=== PATIENT | female | born 1955 | race Hispanic/Latino ===

== ENCOUNTER 2017-03-13 12:28 | Inpatient (IN) | payer OTHER, MEDICAID ==
[~2017-03-13] VITALS: Ht 124.5 cm; Wt 65.9 kg
[2017-03-13] MEDS ORDERED: IPRATROPIUM/ALBUTEROL SULFATE 3 ML SOLUTION IH ONE (13:38)
[2017-03-13 13:39] LABS: BASOPHILS % (AUTO) 0.7 % (0.0-5.0); EOSINOPHILS % (AUTO) 5.4 % (0.0-8.0); LYMPHOCYTES % (AUTO) 13.1 % (21.0-51.0); MEAN CORPUSCULAR HEMOGLOBIN 36.7 pg (27.0-33.0); MEAN CORPUSCULAR HGB CONC 33.8 g/dL (32.0-36.0); MEAN CORPUSCULAR VOLUME 108.7 fL (79-99); MONOCYTES % (AUTO) 8.9 % (3.0-13.0); NEUTROPHILS % (AUTO) 71.9 % (40.0-77.0); NUCLEATED RED BLOOD CELLS 0.3 % (0.0-0.19); PLATELET COUNT (AUTO) 196 K/uL (130-400); RED BLOOD CELL COUNT(AUTO) 1.82 MIL/uL (4.00-5.50); RED CELL DISTRIBUTION WIDTH 16.7 % (11.0-15.5); WHITE BLOOD COUNT (AUTO) 7.2 K/uL (4.8-10.8)
[2017-03-13 13:45] LABS: HEMATOCRIT 19.7 % (36-48)
[2017-03-13 13:47] LABS: CREATININE 7.6 mg/dL (0.5-1.5); POTASSIUM 5.3 mmol/L (3.5-5.1)
[2017-03-13 13:52] LABS: ALBUMIN 2.4 g/dL (3.5-5.0); BILIRUBIN,TOTAL 0.4 mg/dL (0.2-1.0); TOTAL PROTEIN, SERUM 6.8 g/dL (6.0-8.3)
[2017-03-13 13:57] LABS: RAPID GROUP A STREP NEGATIVE (NEGATIVE)
[2017-03-13 14:23] VITALS: BP 52/34
[2017-03-13] MEDS ORDERED: TRAMADOL HCL 50 MG TABLET ONE (16:29)
[2017-03-13] MEDS ORDERED: CALCIUM GLUCONATE 1 GM/10 ML VIAL IV ONE (17:12)
[2017-03-13] MEDS ORDERED: SODIUM POLYSTYRENE SULFONATE 15 GM/60 ML ML ONE (17:12)
[2017-03-13] MEDS ORDERED: INSULIN HUMULIN R 100 UNIT/ML 3ML ONE (17:13)
[2017-03-13] MEDS ORDERED: DEXTROSE 50%-WATER 50 ML DISP.SYRIN IV ONE (18:28)
[2017-03-13] MEDS ORDERED: HYDRALAZINE HCL 20 MG/ML VIAL IV PRN (22:00)
[2017-03-13] MEDS ORDERED: SODIUM CHLORIDE 0.9% 10 ML VIAL IVP PRN (22:15)
[2017-03-13] MEDS ORDERED: FURO20TA6 PO (22:53)
[2017-03-13] MEDS ORDERED: METO-391 PO (22:53)
[2017-03-13] MEDS ORDERED: AMLO10TA2 PO (22:53)
[2017-03-13] MEDS ORDERED: CLOP75TA14 PO (22:53)
[2017-03-13] MEDS ORDERED: ASPI-555 PO (22:53)
[2017-03-13] MEDS ORDERED: SPIR50TA3 PO (22:53)
[2017-03-13] MEDS ORDERED: ISOS20TA7 PO (22:53)
[2017-03-13] MEDS ORDERED: VITA1CAP85 PO (22:56)
[2017-03-13] MEDS ORDERED: GABA-531 PO (22:56)
[2017-03-13] MEDS: ZOSYN 3.375GM+NS 50ML 50 ML IV SCH (23:03)
[2017-03-13] MEDS: FUROSEMIDE 10 MG/ML 4ML VIAL IVP SCH (23:03)
[2017-03-13 23:05] VITALS: BP 104/51
[2017-03-14] VITALS (20 sets, daily range): BP systolic 52–147; BP diastolic 34–81
[2017-03-14] MEDS ORDERED: ACETAMINOPHEN 325 MG TAB PO PRN (01:30)
[2017-03-14] MEDS ORDERED: HYDRALAZINE HCL 20 MG/ML VIAL IV PRN (01:30)
[2017-03-14] MEDS ORDERED: ACETAMINOPHEN-CODEINE 300/30MG TAB PO PRN (01:30)
[2017-03-14] MEDS: IPRATROPIUM/ALBUTEROL SULFATE 3 ML SOLUTION IH SCH ×5 (05:13→22:54)
[2017-03-14] MEDS ORDERED: FUROSEMIDE 20 MG TABLET PO SCH (06:00)
[2017-03-14] MEDS: INSULIN R PO SS1 SQ SCH ×4 (07:12→21:00)
[2017-03-14] MEDS: EPOETIN ALFA 3,000 UNIT/ML ML SQ SCH (08:12)
[2017-03-14] MEDS ORDERED: SPIRONOLACTONE 25 MG TAB PO SCH (09:00)
[2017-03-14] MEDS: ZOSYN 3.375GM+NS 50ML 50 ML IV SCH ×2 (10:38→22:18)
[2017-03-14] MEDS: CLOPIDOGREL BISULFATE 75 MG TAB PO SCH (10:39)
[2017-03-14] MEDS: FUROSEMIDE 10 MG/ML 4ML VIAL IVP SCH ×2 (10:39→22:18)
[2017-03-14] MEDS: AMLODIPINE BESYLATE 5 MG TAB PO SCH (10:39)
[2017-03-14] MEDS: PANTOPRAZOLE SODIUM 40 MG TABLET.DR PO SCH (10:40)
[2017-03-14] MEDS: ISOSORBIDE MONO 30MG TAB SR PO SCH (10:40)
[2017-03-14] MEDS: METOPROLOL TARTRATE 50 MG TAB PO SCH ×2 (10:40→21:00)
[2017-03-14] MEDS: BENZONATATE 100 MG CAPSULE PO SCH ×3 (10:40→21:00)
[2017-03-14] MEDS: METHYLPREDNISOLONE SOD SUCC 40MG/ML 1ML IVP SCH ×2 (12:00→22:17)
[2017-03-14] MEDS: AZITHROMYCIN 500MG+NS 250ML 250 ML IV SCH (14:00)
[2017-03-14] MEDS ORDERED: SODIUM CHLORIDE 0.9% 1000ML 1,000 ML IV ONE (14:34)
[2017-03-14] MEDS ORDERED: PROPOFOL 1000 MG/100 ML 100 ML IV ONE (14:50)
[2017-03-14 14:52] LABS: HEMATOCRIT 21.4 % (36-48); MEAN CORPUSCULAR HGB CONC 32.1 g/dL (32.0-36.0); MEAN CORPUSCULAR VOLUME 112.3 fL (79-99); NUCLEATED RED BLOOD CELLS 0.4 % (0.0-0.19); PLATELET COUNT (AUTO) 210 K/uL (130-400); RED BLOOD CELL COUNT(AUTO) 1.91 MIL/uL (4.00-5.50); RED CELL DISTRIBUTION WIDTH 16.9 % (11.0-15.5); WHITE BLOOD COUNT (AUTO) 12.4 K/uL (4.8-10.8)
[2017-03-14 15:11] LABS: MAGNESIUM 2.3 mg/dL (1.80-2.40); PHOSPHORUS 10.8 mg/dL (2.5-4.9)
[2017-03-14 15:13] LABS: ALBUMIN 2.1 g/dL (3.5-5.0); BILIRUBIN,DIRECT 0.1 mg/dL (0.0-0.3); BILIRUBIN,TOTAL 0.4 mg/dL (0.2-1.0); CREATINE KINASE MB 2.3 ng/mL (0.5-3.6); TOTAL PROTEIN, SERUM 6.2 g/dL (6.0-8.3); TROPONIN I 0.08 ng/mL (0.00-0.06)
[2017-03-14 15:14] LABS: B-TYPE NATRIURETIC PEPTIDE 2660 pg/mL (0-100)
[2017-03-14 15:15] LABS: CREATININE 8.6 mg/dL (0.5-1.5)
[2017-03-14] MEDS ORDERED: CALCIUM GLUCONATE 1 GM in SODIUM CHLORIDE 0.9% 50 ML IV STA (15:24)
[2017-03-14] MEDS ORDERED: SODIUM BICARB 8.4% 50ML SYRINGE IVP STA (15:24)
[2017-03-14] MEDS ORDERED: SODIUM POLYSTYRENE SULFONATE 15 GM/60 ML ML PO STA (15:24)
[2017-03-14] MEDS ORDERED: DEXTROSE 50%-WATER 25 GM/50 ML VIAL IV STA (15:24)
[2017-03-14] MEDS ORDERED: INSULIN HUMULIN R 100 UNIT/ML 3ML IV STA (15:24)
[2017-03-14] MEDS ORDERED: PROPOFOL 1000 MG/100 ML IV PRN (15:30)
[2017-03-14 15:44] LABS: ABG BASE EXCESS -6.9 mmol/L (-2.0-3.0); ABG HCO3 17.8 mmol/L (21.0-28.0); ABG OXYGEN SATURATION 98.1 % (95.0-99.0); ABG PCO2 32 mmHg (32-45)
[2017-03-14] MEDS ORDERED: CALCIUM GLUCONATE 1 GM in DEXTROSE 5%-WATER 50 ML IV STA (15:45)
[2017-03-14] MEDS ORDERED: SODIUM BICARB 50MEQ 50ML VIAL ONE (16:23)
[2017-03-14] MEDS ORDERED: DEXTROSE 50%-WATER 50 ML DISP.SYRIN IV ONE (16:24)
[2017-03-14] MEDS ORDERED: DOPAMINE 800MG/D5 250ML 250 ML IV PRN (17:30)
[2017-03-14] MEDS: GABAPENTIN 300 MG CAPSULE PO SCH (22:17)
[2017-03-15] VITALS (24 sets, daily range): BP systolic 94–157; BP diastolic 44–87
[2017-03-15] MEDS: IPRATROPIUM/ALBUTEROL SULFATE 3 ML SOLUTION IH SCH ×6 (03:13→21:32)
[2017-03-15 03:47] LABS: MEAN CORPUSCULAR HEMOGLOBIN 36.3 pg (27.0-33.0); MEAN CORPUSCULAR HGB CONC 33.2 g/dL (32.0-36.0); MEAN CORPUSCULAR VOLUME 109.4 fL (79-99); NUCLEATED RED BLOOD CELLS 0.2 % (0.0-0.19); PLATELET COUNT (AUTO) 151 K/uL (130-400); RED BLOOD CELL COUNT(AUTO) 1.63 MIL/uL (4.00-5.50); WHITE BLOOD COUNT (AUTO) 6.1 K/uL (4.8-10.8)
[2017-03-15 03:55] LABS: HEMATOCRIT 17.9 % (36-48)
[2017-03-15 04:08] LABS: MAGNESIUM 2.3 mg/dL (1.80-2.40); PHOSPHORUS 9.2 mg/dL (2.5-4.9)
[2017-03-15 04:13] LABS: CREATININE 8.1 mg/dL (0.5-1.5)
[2017-03-15 04:22] LABS: BASOPHILS % (MANUAL) 1 % (0-2); EOSINOPHILS % (MANUAL) 1 % (1-6); LYMPHOCYTES % (MANUAL) 7 % (22-44); MAN.DIFF COMMENT-IMPRESSION MANUAL DIFFERENTIAL; METAMYELOCYTES % 2 % (0-0); MONOCYTES % (MANUAL) 2 % (2-9); PLATELET MORPHOLOGY COMMENT ADEQUATE; SEGMENTED NEUTROPHILS % 87 % (40-70)
[2017-03-15] MEDS: METHYLPREDNISOLONE SOD SUCC 40MG/ML 1ML IVP SCH ×3 (04:46→20:40)
[2017-03-15] MEDS: INSULIN R PO SS1 SQ SCH ×4 (06:58→21:00)
[2017-03-15] MEDS: EPOETIN ALFA 3,000 UNIT/ML ML SQ SCH (07:07)
[2017-03-15] MEDS: BENZONATATE 100 MG CAPSULE PO SCH ×3 (08:04→20:40)
[2017-03-15] MEDS: ISOSORBIDE MONO 30MG TAB SR PO SCH (08:12)
[2017-03-15] MEDS: ZOSYN 3.375GM+NS 50ML 50 ML IV SCH ×2 (08:12→20:40)
[2017-03-15] MEDS: METOPROLOL TARTRATE 50 MG TAB PO SCH ×2 (08:13→20:40)
[2017-03-15] MEDS: AMLODIPINE BESYLATE 5 MG TAB PO SCH (08:13)
[2017-03-15] MEDS: PANTOPRAZOLE SODIUM 40 MG TABLET.DR PO SCH (08:13)
[2017-03-15] MEDS: CLOPIDOGREL BISULFATE 75 MG TAB PO SCH (09:00)
[2017-03-15] MEDS: AZITHROMYCIN 500MG+NS 250ML 250 ML IV SCH (12:23)
[2017-03-15] MEDS: FUROSEMIDE 10 MG/ML 4ML VIAL IVP SCH (12:23)
[2017-03-15 14:44] LABS: ABG BASE EXCESS -2.5 mmol/L (-2.0-3.0); ABG HCO3 19.6 mmol/L (21.0-28.0); ABG OXYGEN SATURATION 99.5 % (95.0-99.0); ABG PCO2 28 mmHg (32-45)
[2017-03-15] MEDS: GABAPENTIN 300 MG CAPSULE PO SCH (20:40)
[2017-03-16] VITALS (15 sets, daily range): BP systolic 106–162; BP diastolic 45–85
[2017-03-16] MEDS: FUROSEMIDE 10 MG/ML 4ML VIAL IVP SCH ×3 (00:41→21:31)
[2017-03-16] MEDS: IPRATROPIUM/ALBUTEROL SULFATE 3 ML SOLUTION IH SCH ×6 (02:32→21:50)
[2017-03-16] MEDS: METHYLPREDNISOLONE SOD SUCC 40MG/ML 1ML IVP SCH ×3 (03:31→21:28)
[2017-03-16 04:19] LABS: CREATININE 7.7 mg/dL (0.5-1.5); MEAN CORPUSCULAR HEMOGLOBIN 34.7 pg (27.0-33.0); MEAN CORPUSCULAR HGB CONC 32.3 g/dL (32.0-36.0); MEAN CORPUSCULAR VOLUME 107.6 fL (79-99); NUCLEATED RED BLOOD CELLS 0.3 % (0.0-0.19); PLATELET COUNT (AUTO) 173 K/uL (130-400); POTASSIUM 3.4 mmol/L (3.5-5.1); RED BLOOD CELL COUNT(AUTO) 1.78 MIL/uL (4.00-5.50); RED CELL DISTRIBUTION WIDTH 16.3 % (11.0-15.5); WHITE BLOOD COUNT (AUTO) 10.8 K/uL (4.8-10.8)
[2017-03-16 04:26] LABS: HEMATOCRIT 19.2 % (36-48)
[2017-03-16] MEDS: INSULIN R PO SS1 SQ SCH ×4 (06:28→21:35)
[2017-03-16] MEDS: AMLODIPINE BESYLATE 5 MG TAB PO SCH (08:22)
[2017-03-16] MEDS: ZOSYN 3.375GM+NS 50ML 50 ML IV SCH ×2 (08:22→21:28)
[2017-03-16] MEDS: BENZONATATE 100 MG CAPSULE PO SCH ×3 (08:22→21:28)
[2017-03-16] MEDS: METOPROLOL TARTRATE 50 MG TAB PO SCH ×2 (08:23→23:41)
[2017-03-16] MEDS: ISOSORBIDE MONO 30MG TAB SR PO SCH (08:23)
[2017-03-16] MEDS: PANTOPRAZOLE SODIUM 40 MG TABLET.DR PO SCH (08:23)
[2017-03-16] MEDS: CLOPIDOGREL BISULFATE 75 MG TAB PO SCH (08:23)
[2017-03-16] MEDS: AZITHROMYCIN 500MG+NS 250ML 250 ML IV SCH (11:47)
[2017-03-16] MEDS: AZITHROMYCIN 250 MG TABLET PO SCH (14:23)
[2017-03-16] MEDS: GABAPENTIN 300 MG CAPSULE PO SCH (21:29)
[2017-03-17] MEDS: IPRATROPIUM/ALBUTEROL SULFATE 3 ML SOLUTION IH SCH ×6 (01:31→22:54)
[2017-03-17 03:03] VITALS: BP 120/50
[2017-03-17] MEDS: METHYLPREDNISOLONE SOD SUCC 40MG/ML 1ML IVP SCH ×3 (04:38→20:34)
[2017-03-17] MEDS: INSULIN R PO SS1 SQ SCH ×4 (06:06→21:00)
[2017-03-17 07:23] VITALS: BP 117/54
[2017-03-17] MEDS: PANTOPRAZOLE SODIUM 40 MG TABLET.DR PO SCH (08:23)
[2017-03-17] MEDS: BENZONATATE 100 MG CAPSULE PO SCH ×3 (08:23→21:33)
[2017-03-17] MEDS: ZOSYN 3.375GM+NS 50ML 50 ML IV SCH ×2 (08:23→21:33)
[2017-03-17] MEDS: CLOPIDOGREL BISULFATE 75 MG TAB PO SCH (08:23)
[2017-03-17] MEDS: METOPROLOL TARTRATE 50 MG TAB PO SCH ×2 (08:23→21:33)
[2017-03-17] MEDS: AMLODIPINE BESYLATE 5 MG TAB PO SCH (09:00)
[2017-03-17] MEDS: ISOSORBIDE MONO 30MG TAB SR PO SCH (09:00)
[2017-03-17 09:40] LABS: MEAN CORPUSCULAR HEMOGLOBIN 35.3 pg (27.0-33.0); MEAN CORPUSCULAR HGB CONC 32.5 g/dL (32.0-36.0); MEAN CORPUSCULAR VOLUME 108.6 fL (79-99); NUCLEATED RED BLOOD CELLS 1.6 % (0.0-0.19); PLATELET COUNT (AUTO) 178 K/uL (130-400); RED BLOOD CELL COUNT(AUTO) 1.77 MIL/uL (4.00-5.50); RED CELL DISTRIBUTION WIDTH 16.2 % (11.0-15.5); WHITE BLOOD COUNT (AUTO) 7.6 K/uL (4.8-10.8)
[2017-03-17 09:47] LABS: CREATININE 7.7 mg/dL (0.5-1.5); HEMATOCRIT 19.2 % (36-48); POTASSIUM 3.5 mmol/L (3.5-5.1)
[2017-03-17] MEDS: FUROSEMIDE 10 MG/ML 4ML VIAL IVP SCH ×2 (10:25→22:56)
[2017-03-17 11:11] VITALS: BP 140/65
[2017-03-17 11:11] LABS: LYMPHOCYTES % (MANUAL) 8 % (22-44); MAN.DIFF COMMENT-IMPRESSION MANUAL DIFFERENTIAL; MONOCYTES % (MANUAL) 3 % (2-9); SEGMENTED NEUTROPHILS % 89 % (40-70)
[2017-03-17 11:12] LABS: PLATELET MORPHOLOGY COMMENT ADEQUATE
[2017-03-17] MEDS: AZITHROMYCIN 250 MG TABLET PO SCH (13:34)
[2017-03-17 16:22] VITALS: BP 141/59
[2017-03-17 19:01] VITALS: BP 139/63
[2017-03-17] MEDS: GABAPENTIN 300 MG CAPSULE PO SCH (21:33)
[2017-03-17 23:04] VITALS: BP 156/83
[2017-03-18] MEDS: IPRATROPIUM/ALBUTEROL SULFATE 3 ML SOLUTION IH SCH ×4 (02:02→14:03)
[2017-03-18 03:25] VITALS: BP 128/57
[2017-03-18] MEDS: METHYLPREDNISOLONE SOD SUCC 40MG/ML 1ML IVP SCH (03:49)
[2017-03-18] MEDS: INSULIN R PO SS1 SQ SCH ×2 (06:20→11:59)
[2017-03-18 07:00] VITALS: BP 146/61
[2017-03-18 11:00] VITALS: BP 140/63
[2017-03-18] MEDS: FUROSEMIDE 10 MG/ML 4ML VIAL IVP SCH (11:54)
[2017-03-18] MEDS: BENZONATATE 100 MG CAPSULE PO SCH (11:54)
[2017-03-18] MEDS: ISOSORBIDE MONO 30MG TAB SR PO SCH (11:55)
[2017-03-18] MEDS: CLOPIDOGREL BISULFATE 75 MG TAB PO SCH (11:55)
[2017-03-18] MEDS: AMLODIPINE BESYLATE 5 MG TAB PO SCH (11:55)
[2017-03-18] MEDS: PANTOPRAZOLE SODIUM 40 MG TABLET.DR PO SCH (11:55)
[2017-03-18] MEDS: AZITHROMYCIN 250 MG TABLET PO SCH (11:55)
[2017-03-18] MEDS: METOPROLOL TARTRATE 50 MG TAB PO SCH (11:55)
[2017-07-18] MEDS ORDERED: HYDR-3422 PO (09:27)
== END 2017-03-18 14:25 | disposition home or self-care (01) | DRG 208 ==
LOC: EDH 12:28 → EDHIP 18:00 → 4CH 21:04 → 2BH 03-14 14:46 → 2AH 03-16 16:47
PROVIDERS: ADMIT Family Medicine; ATTEND Family Medicine
PROC: 0BH17EZ Insertion of Endotracheal Airway into Trachea, Via Natural or Artificial Opening (ICD-10-PCS; principal; 2017-03-14)
PROC: 5A1935Z Respiratory Ventilation, Less than 24 Consecutive Hours (ICD-10-PCS; 2017-03-14)
PROC: 3E1M39Z Irrigation of Peritoneal Cavity using Dialysate, Percutaneous Approach (ICD-10-PCS; 2017-03-14)
PROC: 5A12012 Performance of Cardiac Output, Single, Manual (ICD-10-PCS; 2017-03-15)
PROC: 3E1M39Z Irrigation of Peritoneal Cavity using Dialysate, Percutaneous Approach (ICD-10-PCS; 2017-03-15)
PROC: 3E1M39Z Irrigation of Peritoneal Cavity using Dialysate, Percutaneous Approach (ICD-10-PCS; 2017-03-16)
PROC: 3E1M39Z Irrigation of Peritoneal Cavity using Dialysate, Percutaneous Approach (ICD-10-PCS; 2017-03-17)
DX: J96.00 Acute respiratory failure, unspecified whether with hypoxia or hypercapnia (principal); E11.22 Type 2 diabetes mellitus with diabetic chronic kidney disease; E11.51 Type 2 diabetes mellitus with diabetic peripheral angiopathy without gangrene; J90 Pleural effusion, not elsewhere classified; I46.8 Cardiac arrest due to other underlying condition; N18.6 End stage renal disease; I12.0 Hypertensive chronic kidney disease with stage 5 chronic kidney disease or end stage renal disease; E87.5 Hyperkalemia; J20.9 Acute bronchitis, unspecified; D63.1 Anemia in chronic kidney disease; I25.10 Atherosclerotic heart disease of native coronary artery without angina pectoris; E78.5 Hyperlipidemia, unspecified; S81.802A Unspecified open wound, left lower leg, initial encounter; S81.801A Unspecified open wound, right lower leg, initial encounter; X58.XXXA Exposure to other specified factors, initial encounter; Y93.89 Activity, other specified; Z99.2 Dependence on renal dialysis; Y92.89 Other specified places as the place of occurrence of the external cause; Y99.8 Other external cause status; Z82.49 Family history of ischemic heart disease and other diseases of the circulatory system; Z90.49 Acquired absence of other specified parts of digestive tract; Z98.891 History of uterine scar from previous surgery; Z89.432 Acquired absence of left foot; Z89.431 Acquired absence of right foot; Z95.5 Presence of coronary angioplasty implant and graft; Z79.899 Other long term (current) drug therapy
CPT/HCPCS: 31500; 36415; 36600; 71010; 71020; 71045; 80048; 80053; 80076; 82330; 82435; 82550; 82553; 82803; 82947; 82948; 83605; 83735; 83874; 83880; 84100; 84132; 84295; 84484; 85018; 85025; 85027; 87633; 87804; 87880; 92950; 93005; 94002; 94003; 94640; 94664; J0456; J0610; J1815; J1940; J2543; J2704; J2920; J3490; J7030; J7060; J7070

== ENCOUNTER 2017-04-03 12:11 | Inpatient (IN) | payer MEDICAID, OTHER ==
[~2017-04-03] VITALS: Ht 157.5 cm; Wt 66.8 kg
[~2017-04-03 12:11] MED LIST: AMLO10TA2 PO; ASPI-555 PO; CLOP75TA14 PO; FURO20TA6 PO; GABA-531 PO; ISOS20TA7 PO; METO-391 PO; SPIR50TA3 PO; VITA1CAP85 PO
[2017-04-03 13:11] LABS: BASOPHILS % (AUTO) 0.7 % (0.0-5.0); EOSINOPHILS % (AUTO) 2.5 % (0.0-8.0); HEMATOCRIT 21.9 % (36-48); LYMPHOCYTES % (AUTO) 11.7 % (21.0-51.0); MEAN CORPUSCULAR HEMOGLOBIN 35.6 pg (27.0-33.0); MEAN CORPUSCULAR VOLUME 111.5 fL (79-99); MONOCYTES % (AUTO) 6.9 % (3.0-13.0); NEUTROPHILS % (AUTO) 78.2 % (40.0-77.0); NUCLEATED RED BLOOD CELLS 0.4 % (0.0-0.19); PLATELET COUNT (AUTO) 182 K/uL (130-400); RED BLOOD CELL COUNT(AUTO) 1.97 MIL/uL (4.00-5.50); RED CELL DISTRIBUTION WIDTH 16.7 % (11.0-15.5); WHITE BLOOD COUNT (AUTO) 6.3 K/uL (4.8-10.8)
[2017-04-03] MEDS ORDERED: IPRATROPIUM/ALBUTEROL SULFATE 3 ML SOLUTION IH ONE (13:20)
[2017-04-03 13:26] LABS: ALBUMIN 2.4 g/dL (3.5-5.0); BILIRUBIN,TOTAL 0.3 mg/dL (0.2-1.0); POTASSIUM 5.4 mmol/L (3.5-5.1); TOTAL PROTEIN, SERUM 6.1 g/dL (6.0-8.3)
[2017-04-03 13:35] LABS: CREATININE 8.4 mg/dL (0.5-1.5)
[2017-04-03 13:48] LABS: INR 1.09 (0.85-1.15); PARTIAL THROMBOPLASTIN TIME 28.2 SEC (26.3-35.5); PROTHROMBIN TIME 11.4 SEC (9.6-11.6)
[2017-04-03] MEDS ORDERED: FUROSEMIDE 10 MG/ML 4ML VIAL ONE (16:59)
[2017-04-03 20:18] VITALS: BP 159/72
[2017-04-04] VITALS (7 sets, daily range): BP systolic 110–150; BP diastolic 55–88
[2017-04-04] MEDS ORDERED: ONDANSETRON HCL 4 MG/2 ML VIAL IV PRN (00:15)
[2017-04-04] MEDS ORDERED: ACETAMINOPHEN 325 MG TAB PO PRN (00:15)
[2017-04-04] MEDS ORDERED: ACETAMINOPHEN-CODEINE 300/30MG TAB PO PRN (00:15)
[2017-04-04] MEDS ORDERED: RENAL DOSE IV SCH (00:30)
[2017-04-04] MEDS: HEPARIN SODIUM 5000UNIT/ML 1ML VIAL SQ SCH ×3 (02:41→21:00)
[2017-04-04 05:27] LABS: MEAN CORPUSCULAR HEMOGLOBIN 35.9 pg (27.0-33.0); MEAN CORPUSCULAR HGB CONC 32.2 g/dL (32.0-36.0); MEAN CORPUSCULAR VOLUME 111.3 fL (79-99); NUCLEATED RED BLOOD CELLS 0.7 % (0.0-0.19); PLATELET COUNT (AUTO) 177 K/uL (130-400); RED BLOOD CELL COUNT(AUTO) 1.65 MIL/uL (4.00-5.50); RED CELL DISTRIBUTION WIDTH 16.7 % (11.0-15.5); WHITE BLOOD COUNT (AUTO) 5.8 K/uL (4.8-10.8)
[2017-04-04 05:36] LABS: MAGNESIUM 2.2 mg/dL (1.80-2.40); POTASSIUM 5.9 mmol/L (3.5-5.1)
[2017-04-04 05:38] LABS: CREATININE 8.9 mg/dL (0.5-1.5)
[2017-04-04 05:39] LABS: HEMATOCRIT 18.4 % (36-48)
[2017-04-04] MEDS: IPRATROPIUM/ALBUTEROL SULFATE 3 ML SOLUTION IH SCH ×4 (06:35→23:08)
[2017-04-04] MEDS ORDERED: INSULIN HUMULIN R 100 UNIT/ML 3ML ONE (07:04)
[2017-04-04] MEDS: INSULIN HUMULIN R 100 UNIT/ML 3ML SQ SCH ×4 (07:30→21:53)
[2017-04-04] MEDS ORDERED: EPOETIN ALFA 20,000 UNIT/ML VIAL SQ SCH (09:00)
[2017-04-04] MEDS: METOPROLOL SUCCINATE 50 MG PO SCH (09:00)
[2017-04-04] MEDS: SODIUM POLYSTYRENE SULFONATE 15 GM/60 ML ML PO SCH ×3 (10:12→16:00)
[2017-04-04] MEDS: FUROSEMIDE 10 MG/ML 4ML VIAL IVP SCH (10:38)
[2017-04-04] MEDS: ASPIRIN 81 MG EC TAB PO SCH (10:38)
[2017-04-04] MEDS: CLOPIDOGREL BISULFATE 75 MG TAB PO SCH (10:38)
[2017-04-04] MEDS: PANTOPRAZOLE SODIUM 40 MG TABLET.DR PO SCH (10:38)
[2017-04-04] MEDS: AMLODIPINE BESYLATE 5 MG TAB PO SCH (10:38)
[2017-04-04] MEDS: SPIRONOLACTONE 25 MG TAB PO SCH ×2 (10:39→22:00)
[2017-04-04] MEDS: LEVOFLOXACIN 250 MG/D5W 50ML 50 ML IV SCH (11:22)
[2017-04-04] MEDS: GABAPENTIN 300 MG CAPSULE PO SCH (21:59)
[2017-04-05] VITALS (7 sets, daily range): BP systolic 102–140; BP diastolic 46–65
[2017-04-05] MEDS: SODIUM POLYSTYRENE SULFONATE 15 GM/60 ML ML PO SCH ×4 (00:02→19:00)
[2017-04-05] MEDS: IPRATROPIUM/ALBUTEROL SULFATE 3 ML SOLUTION IH SCH ×3 (05:52→17:50)
[2017-04-05] MEDS: INSULIN HUMULIN R 100 UNIT/ML 3ML SQ SCH ×4 (06:11→20:53)
[2017-04-05] MEDS: CLOPIDOGREL BISULFATE 75 MG TAB PO SCH (09:00)
[2017-04-05] MEDS: METOPROLOL SUCCINATE 50 MG PO SCH (09:00)
[2017-04-05] MEDS: ISOSORBIDE MONONITRATE 20 MG TABLET PO SCH (09:00)
[2017-04-05] MEDS: ASPIRIN 81 MG EC TAB PO SCH (09:00)
[2017-04-05] MEDS: LEVOFLOXACIN 250 MG/D5W 50ML 50 ML IV SCH (09:30)
[2017-04-05] MEDS: SPIRONOLACTONE 25 MG TAB PO SCH ×2 (09:31→21:10)
[2017-04-05] MEDS: AMLODIPINE BESYLATE 5 MG TAB PO SCH (09:31)
[2017-04-05] MEDS: PANTOPRAZOLE SODIUM 40 MG TABLET.DR PO SCH (09:31)
[2017-04-05] MEDS: FUROSEMIDE 10 MG/ML 4ML VIAL IVP SCH (09:32)
[2017-04-05] MEDS ORDERED: SODIUM CHLORIDE 0.9% 500ML 500 ML IV SCH (13:15)
[2017-04-05] MEDS: GABAPENTIN 300 MG CAPSULE PO SCH (21:10)
[2017-04-06] VITALS (7 sets, daily range): BP systolic 103–134; BP diastolic 51–70
[2017-04-06] MEDS: IPRATROPIUM/ALBUTEROL SULFATE 3 ML SOLUTION IH SCH ×5 (00:01→22:33)
[2017-04-06] MEDS: SODIUM POLYSTYRENE SULFONATE 15 GM/60 ML ML PO SCH ×2 (00:15→06:22)
[2017-04-06] MEDS: INSULIN HUMULIN R 100 UNIT/ML 3ML SQ SCH ×4 (06:14→21:08)
[2017-04-06 07:12] LABS: MEAN CORPUSCULAR HEMOGLOBIN 35.9 pg (27.0-33.0); MEAN CORPUSCULAR HGB CONC 32.4 g/dL (32.0-36.0); MEAN CORPUSCULAR VOLUME 110.9 fL (79-99); NUCLEATED RED BLOOD CELLS 0.3 % (0.0-0.19); PLATELET COUNT (AUTO) 180 K/uL (130-400); RED BLOOD CELL COUNT(AUTO) 1.72 MIL/uL (4.00-5.50); RED CELL DISTRIBUTION WIDTH 16.4 % (11.0-15.5); WHITE BLOOD COUNT (AUTO) 5.7 K/uL (4.8-10.8)
[2017-04-06 07:18] LABS: HEMATOCRIT 19.1 % (36-48)
[2017-04-06 07:20] LABS: POTASSIUM 4.1 mmol/L (3.5-5.1)
[2017-04-06 07:29] LABS: CREATININE 8.2 mg/dL (0.5-1.5)
[2017-04-06] MEDS: LEVOFLOXACIN 250 MG/D5W 50ML 50 ML IV SCH (10:46)
[2017-04-06] MEDS: FUROSEMIDE 10 MG/ML 4ML VIAL IVP SCH (10:46)
[2017-04-06] MEDS: PANTOPRAZOLE SODIUM 40 MG TABLET.DR PO SCH (10:46)
[2017-04-06] MEDS: SPIRONOLACTONE 25 MG TAB PO SCH ×2 (10:46→20:25)
[2017-04-06] MEDS: METHYLPREDNISOLONE SOD SUCC 40MG/ML 1ML IVP SCH ×2 (12:17→20:24)
[2017-04-06] MEDS ORDERED: [UNRECOGNIZED DRUG - OTHER] TP (15:20)
[2017-04-06] MEDS: GABAPENTIN 300 MG CAPSULE PO SCH (20:25)
[2017-04-07] MEDS: IPRATROPIUM/ALBUTEROL SULFATE 3 ML SOLUTION IH SCH ×6 (02:56→22:59)
[2017-04-07 03:00] VITALS: BP 132/58
[2017-04-07 05:30] LABS: MEAN CORPUSCULAR HEMOGLOBIN 37.2 pg (27.0-33.0); MEAN CORPUSCULAR HGB CONC 33.5 g/dL (32.0-36.0); MEAN CORPUSCULAR VOLUME 111.2 fL (79-99); NUCLEATED RED BLOOD CELLS 0.5 % (0.0-0.19); PLATELET COUNT (AUTO) 185 K/uL (130-400); RED BLOOD CELL COUNT(AUTO) 1.81 MIL/uL (4.00-5.50); RED CELL DISTRIBUTION WIDTH 16.6 % (11.0-15.5); WHITE BLOOD COUNT (AUTO) 7.7 K/uL (4.8-10.8)
[2017-04-07 05:32] LABS: HEMATOCRIT 20.1 % (36-48)
[2017-04-07 05:49] LABS: POTASSIUM 4.5 mmol/L (3.5-5.1)
[2017-04-07 06:05] LABS: CREATININE 8.8 mg/dL (0.5-1.5)
[2017-04-07] MEDS: INSULIN HUMULIN R 100 UNIT/ML 3ML SQ SCH ×4 (06:34→22:49)
[2017-04-07 07:58] VITALS: BP 123/65
[2017-04-07] MEDS: LEVOFLOXACIN 250 MG/D5W 50ML 50 ML IV SCH (09:11)
[2017-04-07] MEDS: PANTOPRAZOLE SODIUM 40 MG TABLET.DR PO SCH (09:12)
[2017-04-07] MEDS: FUROSEMIDE 10 MG/ML 4ML VIAL IVP SCH (09:12)
[2017-04-07] MEDS: SPIRONOLACTONE 25 MG TAB PO SCH ×2 (09:12→22:24)
[2017-04-07] MEDS: METHYLPREDNISOLONE SOD SUCC 40MG/ML 1ML IVP SCH (09:12)
[2017-04-07 11:20] VITALS: BP 134/76
[2017-04-07] MEDS: IRON SUCROSE COMPLEX 100 MG in SODIUM CHLORIDE 0.9% 50 ML IV SCH (13:48)
[2017-04-07 16:45] VITALS: BP 136/65
[2017-04-07 20:00] VITALS: BP 147/61
[2017-04-07] MEDS: GABAPENTIN 300 MG CAPSULE PO SCH (22:24)
[2017-04-08] VITALS: BP 145/67
[2017-04-08] MEDS ORDERED: MIRALAX PO (02:04)
[2017-04-08] MEDS: IPRATROPIUM/ALBUTEROL SULFATE 3 ML SOLUTION IH SCH ×4 (02:39→14:49)
[2017-04-08 04:00] VITALS: BP 136/58
[2017-04-08] MEDS: INSULIN HUMULIN R 100 UNIT/ML 3ML SQ SCH ×3 (06:12→17:12)
[2017-04-08 07:50] VITALS: BP 141/66
[2017-04-08] MEDS ORDERED: IRON SUCROSE COMPLEX 100 MG in SODIUM CHLORIDE 0.9% 50 ML IV SCH (09:00)
[2017-04-08] MEDS ORDERED: PREDNISONE 20 MG TABLET PO SCH (09:00)
[2017-04-08] MEDS ORDERED: POLYETHYLENE GLYCOL 3350 17 GM POWD.PACK PO SCH (09:00)
[2017-04-08 09:07] LABS: MEAN CORPUSCULAR HEMOGLOBIN 35.7 pg (27.0-33.0); MEAN CORPUSCULAR HGB CONC 31.7 g/dL (32.0-36.0); MEAN CORPUSCULAR VOLUME 112.5 fL (79-99); NUCLEATED RED BLOOD CELLS 0.9 % (0.0-0.19); PLATELET COUNT (AUTO) 216 K/uL (130-400); RED BLOOD CELL COUNT(AUTO) 2.04 MIL/uL (4.00-5.50); WHITE BLOOD COUNT (AUTO) 7.8 K/uL (4.8-10.8)
[2017-04-08 09:15] LABS: CREATININE 8.5 mg/dL (0.5-1.5)
[2017-04-08 11:15] VITALS: BP 111/83
[2017-04-08] MEDS: PANTOPRAZOLE SODIUM 40 MG TABLET.DR PO SCH (11:43)
[2017-04-08] MEDS: SPIRONOLACTONE 25 MG TAB PO SCH (11:43)
[2017-04-08] MEDS: IRON SUCROSE COMPLEX 100 MG in SODIUM CHLORIDE 0.9% 50 ML IV SCH (11:44)
[2017-04-08] MEDS: FUROSEMIDE 10 MG/ML 4ML VIAL IVP SCH (11:44)
[2017-04-08] MEDS: LEVOFLOXACIN 250 MG/D5W 50ML 50 ML IV SCH (11:44)
[2017-04-08 16:04] VITALS: BP 142/59
[2017-04-08] MEDS ORDERED: CADEXOMER IODINE 40 GM GEL TP SCH (16:15)
[2017-04-08] MEDS ORDERED: ISOS20TA7 PO (17:18)
[2017-07-18] MEDS ORDERED: HYDR-3422 PO (09:27)
== END 2017-04-08 19:44 | disposition home or self-care (01) | DRG 194 ==
LOC: EDH 12:11 → EDHIP 12:12 → 4BH 21:28
PROVIDERS: ADMIT Family Medicine; ATTEND Family Medicine
DX: I13.2 Hypertensive heart and chronic kidney disease with heart failure and with stage 5 chronic kidney disease, or end stage renal disease (principal); J18.9 Pneumonia, unspecified organism; E11.21 Type 2 diabetes mellitus with diabetic nephropathy; E11.51 Type 2 diabetes mellitus with diabetic peripheral angiopathy without gangrene; N18.6 End stage renal disease; D63.8 Anemia in other chronic diseases classified elsewhere; I25.10 Atherosclerotic heart disease of native coronary artery without angina pectoris; I50.9 Heart failure, unspecified; D63.1 Anemia in chronic kidney disease; E11.22 Type 2 diabetes mellitus with diabetic chronic kidney disease; E78.5 Hyperlipidemia, unspecified; E87.5 Hyperkalemia; E11.65 Type 2 diabetes mellitus with hyperglycemia; Z99.2 Dependence on renal dialysis; Z95.5 Presence of coronary angioplasty implant and graft; Z90.49 Acquired absence of other specified parts of digestive tract; Z89.432 Acquired absence of left foot; Z89.431 Acquired absence of right foot; Z82.49 Family history of ischemic heart disease and other diseases of the circulatory system
CPT/HCPCS: 36415; 71045; 80048; 80053; 82270; 82948; 83605; 83735; 83880; 84100; 84132; 84484; 85025; 85027; 85610; 85730; 87040; 87804; 93005; 93306; 94640; 94664; J0885; J1644; J1756; J1815; J1940; J1956; J2920; J7040

== ENCOUNTER 2017-07-17 12:38 | Emergency (ER) | payer MEDICAID, OTHER ==
[~2017-07-17 12:38] MED LIST changes: +MIRALAX PO; -SPIR50TA3 PO; +SPIR50TA5 PO; +[UNRECOGNIZED DRUG - OTHER] TP
[2017-07-17 13:09] LABS: EOSINOPHILS % (AUTO) 1.4 % (0.0-8.0); HEMATOCRIT 26.4 % (36-48); LYMPHOCYTES % (AUTO) 17.3 % (21.0-51.0); MEAN CORPUSCULAR HEMOGLOBIN 34.8 pg (27.0-33.0); MEAN CORPUSCULAR HGB CONC 33.7 g/dL (32.0-36.0); MEAN CORPUSCULAR VOLUME 103.2 fL (79-99); MONOCYTES % (AUTO) 9.3 % (3.0-13.0); PLATELET COUNT (AUTO) 296 K/uL (130-400); RED BLOOD CELL COUNT(AUTO) 2.56 MIL/uL (4.00-5.50); RED CELL DISTRIBUTION WIDTH 15.7 % (11.0-15.5); WHITE BLOOD COUNT (AUTO) 7.6 K/uL (4.8-10.8)
[2017-07-17 13:32] LABS: B-TYPE NATRIURETIC PEPTIDE 1300 pg/mL (0-100); CREATININE 6.8 mg/dL (0.5-1.5); INR 1.02 (0.85-1.15); PARTIAL THROMBOPLASTIN TIME 31.1 SEC (26.3-35.5); POTASSIUM 3.5 mmol/L (3.5-5.1); PROTHROMBIN TIME 10.7 SEC (9.6-11.6)
[2017-07-17 13:55] LABS: ALBUMIN 1.6 g/dL (3.5-5.0); BILIRUBIN,TOTAL 0.2 mg/dL (0.2-1.0); CREATINE KINASE MB 2.2 ng/mL (0.5-3.6); TOTAL PROTEIN, SERUM 6.1 g/dL (6.0-8.3)
[2017-07-17 17:22] LABS: APPEARANCE,URINE TURBID (CLEAR); BILIRUBIN,URINE MODERATE (NEGATIVE); COLOR,URINE RED (YELLOW); GLUCOSE, URINE (UA) NEGATIVE (NEGATIVE); KETONES,URINE NEGATIVE (NEGATIVE); LEUKOCYTE ESTERASE ,URINE LARGE (NEGATIVE); NITRATE,URINE POSITIVE (NEGATIVE); OCCULT BLOOD,URINE LARGE (NEGATIVE); PH,URINE 6.5 (5.0-8.0); PROTEIN,URINE >=300 (NEGATIVE)
[2017-07-17 17:26] LABS: BACTERIA,URINE Moderate /HPF (None Seen); RBC,URINE TNTC /HPF (0-1)
[2017-07-17 17:27] LABS: SQUAMOUS EPITHELIAL CELL,UR None Seen /HPF (0-2); WBC,URINE >100 /HPF (0-1)
[2017-07-17] MEDS ORDERED: CEFTRIAXONE SODIUM 1 GM ONE (18:51)
[2017-07-17] MEDS ORDERED: SODIUM CHLORIDE 0.9% 100 ML IV ONE (18:51)
[2017-07-18] MEDS ORDERED: HYDR-3422 PO (09:27)
== END 2017-07-17 19:37 | disposition home or self-care (01) ==
LOC: EDH 12:38
DX: N39.0 Urinary tract infection, site not specified (principal); M54.2 Cervicalgia; R51 Headache; E11.9 Type 2 diabetes mellitus without complications; I10 Essential (primary) hypertension
CPT/HCPCS: 36415; 70450; 71045; 80053; 81001; 82550; 82553; 83880; 84484; 85025; 85610; 85730; 87088; 87186; 93005; 96374; 99285; J0696

== ENCOUNTER 2017-07-29 09:29 | Emergency (ER) | payer MEDICAID, OTHER ==
[~2017-07-29 09:29] MED LIST changes: +HYDR-3422 PO; -MIRALAX PO; -SPIR50TA5 PO; -[UNRECOGNIZED DRUG - OTHER] TP
[2017-07-29 10:50] LABS: BASOPHILS % (AUTO) 0.9 % (0.0-5.0); EOSINOPHILS % (AUTO) 1.6 % (0.0-8.0); HEMATOCRIT 23.4 % (36-48); LYMPHOCYTES % (AUTO) 15.1 % (21.0-51.0); MEAN CORPUSCULAR HEMOGLOBIN 35.4 pg (27.0-33.0); MEAN CORPUSCULAR HGB CONC 34.1 g/dL (32.0-36.0); MEAN CORPUSCULAR VOLUME 103.9 fL (79-99); MONOCYTES % (AUTO) 7.5 % (3.0-13.0); NEUTROPHILS % (AUTO) 74.9 % (40.0-77.0); NUCLEATED RED BLOOD CELLS 0.2 % (0.0-0.19); PLATELET COUNT (AUTO) 204 K/uL (130-400); RED BLOOD CELL COUNT(AUTO) 2.26 MIL/uL (4.00-5.50); WHITE BLOOD COUNT (AUTO) 11.2 K/uL (4.8-10.8)
[2017-07-29 11:05] LABS: ALANINE AMINOTRANSFERASE 16 U/L (12-78); ALBUMIN 1.3 g/dL (3.5-5.0); ASPARTATE AMINOTRANSFERASE 22 U/L (10-37); BILIRUBIN,TOTAL 0.3 mg/dL (0.2-1.0); CARBON DIOXIDE 25 mmol/L (21-32); CHLORIDE 95 mmol/L (101-111); GLOMERULAR FILTR. RATE CALC 5 mL/min (>60); GLUCOSE,RANDOM 157 mg/dL (70-105); LIPASE < 50 U/L (114-286); POTASSIUM 4.8 mmol/L (3.5-5.1); SODIUM SERUM 134 mmol/L (136-145); UREA NITROGEN, BLOOD 29 mg/dL (7-18)
[2017-07-29 11:07] LABS: CREATININE 8.1 mg/dL (0.5-1.5)
[2017-07-29] MEDS ORDERED: TRAMADOL HCL 50 MG TABLET ONE (12:36)
== END 2017-07-29 13:17 | disposition home or self-care (01) ==
LOC: EDH 09:29
DX: R10.84 Generalized abdominal pain (principal); E11.9 Type 2 diabetes mellitus without complications; I10 Essential (primary) hypertension; Z90.49 Acquired absence of other specified parts of digestive tract; Z79.4 Long term (current) use of insulin
CPT/HCPCS: 36415; 74176; 80053; 83690; 85025